=== PATIENT | female | born 1990 ===

== ENCOUNTER 2018-07-31 07:43 | Outpatient (CLI) | payer OTHER ==
[~2018-07-31] VITALS: Ht 182.9 cm; Wt 154.2 kg
[2018-07-31] MEDS ORDERED: FLONASE16 GM NASAL (11:00)
[2018-07-31] MEDS ORDERED: ZANTAC300 MG PO (11:00)
[2018-07-31] MEDS ORDERED: CIPRO500 MG PO (11:00)
== END 2018-07-31 08:05 | disposition home or self-care (01) ==
LOC: OFIC 805 07:43
DX: J32.4 Chronic pansinusitis (principal); R49.9 Unspecified voice and resonance disorder; G47.33 Obstructive sleep apnea (adult) (pediatric); E66.2 Morbid (severe) obesity with alveolar hypoventilation; J44.9 Chronic obstructive pulmonary disease, unspecified